=== PATIENT | male | born 1970 | race Caucasian/White ===

== ENCOUNTER 2023-08-19 11:40 | Emergency (ER) | payer MEDICAID ==
[~2023-08-19] VITALS: Ht 185.4 cm; Wt 102.3 kg
[2023-08-19 12:22] VITALS: BP 148/98; PULSE 88; RESP 16; TEMP 98.5; O2SAT 97
== END 2023-08-19 15:22 | disposition home or self-care (01) ==
LOC: ER 11:40
DX: S50.12XA Contusion of left forearm, initial encounter (principal); M79.602 Pain in left arm; M25.522 Pain in left elbow; V23.49XA Other motorcycle driver injured in collision with car, pick-up truck or van in traffic accident, initial encounter; Y93.89 Activity, other specified; Y92.89 Other specified places as the place of occurrence of the external cause; Y99.8 Other external cause status
CPT/HCPCS: 73080; 73090; 99284